=== PATIENT | male | born 1985 | race Caucasian/White ===

== ENCOUNTER 2017-05-31 19:31 | Emergency (ER) | payer MEDICAID ==
[~2017-05-31] VITALS: Ht 172.7 cm; Wt 86.9 kg
[2017-05-31 19:54] VITALS: Ht 172.7 cm; Wt 86.9 kg
[2017-05-31 21:08] VITALS: BP 136/78
== END 2017-05-31 21:08 | disposition home or self-care (01) ==
LOC: ED 19:31
DX: S62.102A Fracture of unspecified carpal bone, left wrist, initial encounter for closed fracture (principal); W01.0XXA Fall on same level from slipping, tripping and stumbling without subsequent striking against object, initial encounter; Y93.89 Activity, other specified; Y92.89 Other specified places as the place of occurrence of the external cause; Y99.8 Other external cause status

== ENCOUNTER 2017-08-02 19:18 | Emergency (ER) | payer SELFPAY ==
[~2017-08-02] VITALS: Ht 172.7 cm; Wt 86.6 kg
[2017-08-02 19:23] VITALS: Ht 172.7 cm; Wt 86.6 kg
[2017-08-02 20:17] VITALS: BP 148/96
== END 2017-08-02 20:17 | disposition home or self-care (01) ==
LOC: ED 19:18
DX: M54.5 Low back pain (principal); V89.2XXA Person injured in unspecified motor-vehicle accident, traffic, initial encounter; Y93.I9 Activity, other involving external motion; Y92.89 Other specified places as the place of occurrence of the external cause; Y99.8 Other external cause status